=== PATIENT | female | born 1975 | race Hispanic/Latino ===

== ENCOUNTER 2024-01-10 13:15 | Emergency (ER) | payer SELFPAY ==
[2024-01-10] MEDS ORDERED: Boostrix 0.5 ML (Tdap) VIAL (>/=7 yrs of age) ONE (14:09)
[2024-01-10] MEDS ORDERED: Lidocaine 1% (PF) 30 ML VIAL ONE (14:17)
[2024-01-10] MEDS ORDERED: Bacitracin 1 PK ONE (14:39)
== END 2024-01-10 15:18 | disposition home or self-care (01) ==
LOC: NAV ERS 13:15
DX: S61.011A Laceration without foreign body of right thumb without damage to nail, initial encounter (principal); Z23 Encounter for immunization; W26.8XXA Contact with other sharp object(s), not elsewhere classified, initial encounter
CPT/HCPCS: 12001; 90471; 90715; J2001

== ENCOUNTER 2024-01-23 10:50 | Emergency (ER) | payer SELFPAY | END 2024-01-23 11:39 | disposition home or self-care (01) | LOC: NAV ERS 10:50 | DX: S61.012D Laceration without foreign body of left thumb without damage to nail, subsequent encounter (principal); Z72.89 Other problems related to lifestyle; W26.9XXD Contact with unspecified sharp object(s), subsequent encounter ==